=== PATIENT | female | born 1955 | race Caucasian/White ===

== ENCOUNTER → 2025-01-30 12:17 | Outpatient (REF) | payer MEDICARE, SELFPAY | LOC: RAD 12:17 | PROVIDERS: ATTENDING PHYSICIAN Student in an Organized Health Care Education/Training Program; FAMILY PHYSICIAN Family Medicine | DX: M25.469 Effusion, unspecified knee (principal); M25.50 Pain in unspecified joint; M54.50 Low back pain, unspecified; Z87.39 Personal history of other diseases of the musculoskeletal system and connective tissue; Z96.643 Presence of artificial hip joint, bilateral; M81.0 Age-related osteoporosis without current pathological fracture | CPT/HCPCS: 72110; 77080 ==

== ENCOUNTER → 2025-02-19 15:25 | Outpatient (REF) | payer MEDICARE, SELFPAY | LOC: RAD 15:25 | PROVIDERS: ATTENDING PHYSICIAN Student in an Organized Health Care Education/Training Program; FAMILY PHYSICIAN Family Medicine | DX: M25.469 Effusion, unspecified knee (principal); M25.561 Pain in right knee; M25.562 Pain in left knee; M54.50 Low back pain, unspecified; A69.20 Lyme disease, unspecified | CPT/HCPCS: 93970 ==